=== PATIENT | male | born 1970 | race Caucasian/White ===

== ENCOUNTER 2022-03-08 09:54 | Outpatient (CLI) | payer OTHER, SELFPAY ==
--- NOTE | 2022-03-08 10:06 | US_ITS ---
WS: [id number] RIGHT UPPER QUADRANT ULTRASOUND HISTORY: ELEVATED LIVER ENZYMES COMPARISON: None available. Liver: 15.4 cm in length. Normal size liver. Minimal coarse echotexture from hepatic steatosis. Focal fatty sparing adjacent to the gallbladder. Portal Vein: Normal hepatopetal flow with monophasic waveform. Gallbladder: Normally distended gallbladder with no stones or wall thickening. CBD: 0.5 cm Pancreas: Poorly visualized due to body habitus. No abnormality seen. Right kidney: 11.6 cm in length. Normal size and echogenicity. No hydronephrosis or mass. Aorta and IVC: Unremarkable abdominal aorta and IVC. No ascites. US/US abdomen limited [id number] IMPRESSION: 1. No cholelithiasis. Normal gallbladder. 2. Mild hepatic steatosis with focal fatty sparing adjacent to the gallbladder .
== END 2022-03-08 09:55 | disposition home or self-care (01) ==
LOC: RAD 09:56
PROVIDERS: Visit Provider Family Medicine
DX: K76.0 Fatty (change of) liver, not elsewhere classified (principal); R74.8 Abnormal levels of other serum enzymes
CPT/HCPCS: 76705